=== PATIENT | female | born 1950 | race Asian ===

== ENCOUNTER 2018-06-09 07:02 | Emergency (ER) | payer BC ==
--- NOTE | 2018-06-09 07:18 | UC ---
Back Pain HPI - HPI Summary HPI Summary: This is a 67 year old female with a chief complaint of upper back pain beginning 3 days ago. PAIN INTENSITY NOW: 01/12 COURSE: getting worse QUALITY: tight, ache LOCATION: upper back, between shoulder blades MADE WORSE BY: palpation, back flexion RELIEVED BY: lying down, shower Note: VSS; 130/74 Nurses note: pt started three days ago with upper back discomfort, denies injury. denies cp. no sob. - History of Current Complaint Stated Complaint: UPPER BACK PAIN Time Seen by Provider: 06/09/18 07:15 - Allergies/Home Medications Allergies/Adverse Reactions: Allergies Allergy/AdvReac Type Severity Reaction Status Date / Time No Known Allergies Allergy Verified 01/30/14 11:53 PMH/Surg Hx/FS Hx/Imm Hx - Additional Past Medical History Additional PMH: VISIT HISTORY: non-contributory to present complaint MEDICATIONS: metformin, lisinopril CHRONIC CONDITIONS: DM; Hypertension Family history significant for: -cancer; denies CVD SMOKING: neg ALCOHOL: neg EMPLOYMENT: homemaker Previously Healthy: Yes - Surgical History Surgical History: Yes Surgery Procedure, Year, and Place: 15 years ago - appendix. 10 years ago - Lumpectomy - neck - benign. sinus surgery - Social History Alcohol Use: None Substance Use Type: None Smoking Status (MU): Never Smoked Tobacco Have You Smoked in the Last Year: No Review of Systems All Other Systems Reviewed And Are Negative: Yes Constitutional: Positive: Negative Skin: Positive: Negative Eyes: Positive: Negative ENT: Positive: Negative Respiratory: Positive: Negative Cardiovascular: Positive: Negative Gastrointestinal: Positive: Negative Genitourinary: Positive: Negative Motor: Positive: Negative Neurovascular: Positive: Negative Musculoskeletal: Positive: Myalgia - BETWEEN SHOULDER BLADES TO PALPATION AND FLEXION Neurological: Positive: Negative Psychological: Positive: Negative Physical Exam - Summary Physical Exam Summary: Appearance: The patient is well-appearing, is in no pain or distress, and is well-nourished. Eyes: Conjunctiva are clear. Pupils are equal and reactive to light and accommodation. Extra ocular muscle movement is intact. ENT: The hearing is grossly normal, the pharynx is normal, and the TMs are normal. There is no muffled or hoarse voice. No stridor. Neck: The neck is supple and there is no lymphadenopathy. Respiratory: The chest is nontender to palpation and without crepitus. The lungs are clear, there are normal breath sounds, and there is no respiratory distress. No wheezes, rales or rhonchi. Cardiovascular: Heart sounds reveal a regular rate and rhythm. There are no clicks, rubs or murmurs. There are no carotid bruits or thrills. Circulation is grossly intact. Abdomen: The abdomen is soft and nontender. There is no organomegaly. Bowel sounds are present and within normal limits. No point tenderness at McBurneys point. Musculoskeletal: Strength is intact. The patient moves all extremities. Neurological: The patient is alert. Motor and sensory are examination grossly intact. Speech is normal. Psychological: The patient displays age appropriate behavior Skin: Negative for rashes. right: 134/62 left: 130/74 Triage Information Reviewed: Yes Back Pain Course/Dx - Course Course Of Treatment: 67 YEAR old with 3 day hx of upper back discomfort. She states that she does a lot of upper extremity exercises. Denies chest pain. BP equal and pulses equal, radial. Pain with palpation between shoulder blades. Patient is currently in physical therapy for her knee. She will begin for this muscle strain condition. - Differential Dx/Diagnosis Differential Diagnosis/HQI/PQRI: Aneurysm, Fracture, Herniated Disc, Strain Provider Diagnosis: Strain, back Discharge - Sign-Out/Discharge Documenting (check all that apply): Patient Departure All imaging exams completed and their final reports reviewed: No Studies - Discharge Plan Condition: Stable Disposition: HOME Prescriptions: Cyclobenzaprine TAB* [Flexeril TAB*] 10 mg PO BID #10 tab MDD 2 Patient Education Materials: Acute Low Back Pain (ED) Referrals: Mariya Villavicencio MD [Primary Care Provider] - Additional Instructions: WE DISCUSSED: PLEASE SEEK CARE AT THE EMERGENCY DEPARTMENT IF SYMPTOMS WORSEN OR IF NEW SYMPTOMS DEVELOP. FOLLOW UP WITH YOUR PRIMARY CARE PHYSICIAN IF CONDITION CONTINUES BEYOND 5 DAYS WITHOUT IMPROVEMENT. YOUR DIAGNOSIS IS: TRAPEZIUS MUSCLE STRAIN YOUR PRESCRIPTION RECOMMENDATION IS: flexeril muscle relaxant; acetaminophen; you can try ibuprofen unless you have heartburn OTHER INSTRUCTIONS: Hypertension Discharge Instructions: Your blood pressure reading today was slightly high, indicating HYPERTENSION. Follow-up with your primary care provider within 4 weeks for blood pressure check and appropriate recommendations and treatment, as needed. FOR PAIN AND/OR SLEEP: For pain: Ibuprofen (Motrin and other brand names) 400-600mg PLUS acetaminophen (Tylenol and other brand names) 500mg - 1000mg every 8 hours. Maximum is 3 doses a day. If this dosage is required for more than 5 days, you should re-check with your doctor. The combination of these two over-the- counter medications can be more effective than each one taken alone. Please check with the pharmacist if you have questions about your allergies to these medications. To help you sleep: If you feel as if you want to calm down and get sleepy, over the counter diphenhydramine (Benadryl and other brand names), 25 mg up to every 8 hours may be useful. Please check with the pharmacist if you have questions about your allergies to these medications. PHYSICAL THERAPY REFERRAL: This is your referral to a physical therapist. The physical therapy (PT) will help you recover. After an injury, PT can reduce swelling and pain. In recovery, PT is used to restore mobility and strength. Your specific treatment goals are: +++Reduction of Swelling (EGS, US, ice as needed) +++Pain Reduction (EGS, US, ice as needed) +++Gnosticism of Mobility -Your diagnosis is: strain of trapezius -Duration of therapy: two weeks or until resolution of condition. -Your physician re-evaluation needs to be arranged by you. - Billing Disposition and Condition Condition: STABLE Disposition: Home
[2018-06-09 07:19] VITALS: BP 130/74
== END 2018-06-09 07:53 | disposition home or self-care (01) ==
LOC: UCEAST 07:02
DX: S29.012A Strain of muscle and tendon of back wall of thorax, initial encounter (principal); X58.XXXA Exposure to other specified factors, initial encounter; Y92.9 Unspecified place or not applicable
CPT/HCPCS: 99202; G0463

== ENCOUNTER 2019-03-15 18:40 | Emergency (ER) | payer BC ==
--- OUTSIDE RECORDS SUMMARY | 2019-03-15 18:44 | XMS REPORT | Summary of Care ---
:1950 Author Organization [facility] Address [address] [address] Care Team Providers Name Role Phone Mariya Villavicencio MD Primary Care Provider Reason for Visit Reason Comments Thoracic Back Pain Encounter Details Date Type Department Care Team Description 02/15/2019 Office Visit [facility] - La Henderson, PT Acute thoracic back [facility] [address] [place] [address] Dr pain, unspecified Therapy [address] back pain laterality [address] [place] [address] (Primary Dx) [address] [phone] [place] [address] [phone] Allergies Active Allergy Reactions Severity Noted Date Comments Tramadol GI Reaction 10/04/2014 Upset stomach after 4 doses documented as of this encounter (statuses as of 02/15/2019) Medications Medication Sig Dispensed Refills Start Date End Date Status acetaminophen (TYLENOL) Take 1 Tab by 60 Tab 0 02/14/2016 Active 500 MG Oral mouth EVERY SIX TabIndications: Mid-back HOURS NEEDED pain, acute for Pain. cyclobenzaprine Take 1 Tab by 21 Tab 0 02/14/2016 Active (FLEXERIL) 5 MG Oral mouth THREE TabIndications: Mid-back TIMES DAILY pain, acute NEEDED for muscle spasm. Sedating, be careful to avoid falls metFORMIN HCL 500 MG Take 2 Tabs by 180 Tab 3 08/26/2018 Active Oral TABLET SR 24 mouth DAILY. HRIndications: Diabetes mellitus without complication (HCC) naproxen (NAPROSYN) 500 Take 500 mg by 0 Active MG Oral Tab mouth TWICE DAILY. simvastatin (ZOCOR) 40 TAKE ONE TABLET 90 Tab 3 02/07/2019 Active MG Oral TabIndications: BY MOUTH AT Lipid disorder BEDTIME lisinopril (PRINIVIL, TAKE ONE TABLET 90 Tab 3 02/07/2019 Active ZESTRIL) 20 MG Oral BY MOUTH EVERY TabIndications: Lipid DAY disorder documented as of this encounter (statuses as of 02/15/2019) Active Problems Problem Noted Date Right upper quadrant abdominal pain 10/04/2018 Acute thoracic back pain 06/10/2018 Sciatica, left side 04/01/2016 Acute pain of left knee 04/01/2016 Knee pain 12/27/2012 BMI 34.0-34.9,adult 02/05/2012 Overview: This patient's BMI has been calculated and is above average, and BMI management plan is completed. General patient education discussion including: obesity-related excess mortality DM (diabetes mellitus) 07/18/2011 Lipid disorder 11/18/2007 Scrofula 09/13/2007 Overview: STATUS POST TREATMENT BY THE HEALTH DEPARTMENT Helicobacter Pylori (H. 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 Osteopenia 09/13/2007 Essential hypertension 09/13/2007 documented as of this encounter (statuses as of 02/15/2019) Resolved Problems Problem Noted Date Resolved Date Hyperlipidemia 09/13/2007 09/27/2008 documented as of this encounter (statuses as of 02/15/2019) Immunizations Name Administration Dates Next Due Depo Medrol (80mg) 01/09/2015 IN-CLINIC MED ADMINISTRATION 01/10/2015 Influenza Vaccine Whole 06/15/2007 Synvisc (16 mg) 06/03/2016, 05/27/2016, 05/20/2016, 05/06/2016, 04/29/2016 TDAP Vaccine 01/24/2014 documented as of this encounter Social History Tobacco Use Types Packs/Day Years Used Date Never Smoker Smokeless Tobacco: Never Used Alcohol Use Drinks/Week oz/Week Comments No 0 Standard drinks or equivalent 0.0 Sex Assigned at Date Recorded Not on file Job Start Date Occupation Industry Not on file Not on file Not on file Travel History Travel Start Travel End No recent travel history available. documented as of this encounter Last Filed Vital Signs Not on filedocumented in this encounter Progress Notes La Henderson, PT - 02/15/2019 8:00 AM EDT [facility] Treatment Note [facility]patient [facility] PH[facility]ICAL [facility]ERAPY [address] [place] [phone] Treatment Number: 8 Referring Physician: Mariya Villavicencio Primary Diagnosis: ICD-9-CM ICD-10-CM 1. Acute thoracic back pain, unspecified back pain laterality 724.1 M54.6 Time In: 0800 Time Out: 0830 Total Session Minutes: 30 Pain at Start of Care: 08/15 Pain at End of Care: 07/15 Subjective Comments: Still gets pain if she does too much cooking, cleaning or sits to long. Othertimes the mid back just feels tight Interventions: Therapeutic Exercises (09883) Number of Exercises?: 4 Total Minutes (all Therapeutic Exercise): 10 Exercise #2 Exercise Name: Prone I/T Reason for Exercise: Strengthening Location/Body Area: Shoulder;Thoracic Spine Sets/Reps: 10 Exercise #4 Exercise Name: upper traps stretch Reason for Exercise: Flexibility Location/Body Area: Cervical Spine Sets/Reps: 3x30 seconds Manual Therapy (96925) Soft Tissue Mobilization: Manual Tissue Mobilization Soft Tissue Mobilization Details: DTM to thoracic region Joint Mobilization: P-A at thoracic spine Joint Mobilization Details: grade 3-4 Taping: kinesiotape Taping Details: Y strip to facilitate rhomboids; lower traps Total Minutes (All Manual Therapy): 20 Assessment: Patient demonstrates decreased scap stabilizer and postural strength. Requires cueing for posture but is independent with HEP. Patient also reports ongoing difficulty in cooking, cleaning, bending, prolonged sitting. Skilled Physical Therapy services are required to address ongoing functional and objective limitations/impairments including impaired posture, decreased strength, thoracichypomobility. Plan for Next Visit: Continue per POC. Add more strengthening to HEP. Total UNTIMED Code Treatment Minutes: Total TIMED Code Treatment Minutes: 30 Total Treatment Minutes: 30 Author: La Henderson, PT 02/15/2019 08:30 documented in this encounter Plan of Treatment Date Type Specialty Care Team Description 03/02/2019 Office Visit Physical Therapy La Henderson, PT [address] [place] [address] [place] [address] [phone] 03/09/2019 Office Visit Physical Therapy La Henderson, PT [address] [place] [address] [phone] Health Maintenance Due Date Last Done Comments Diabetic Eye Exam 1950 ZOSTER IMMUNIZATION SERIES 2002 (1 of 2) FALL RISK ASSESSMENT 2017 PNEUMOCOCCAL 65+YRS (1 of 2 2017 - PCV13) INFLUENZA VACCINE (#1) 2019 06/15/2007 HEMOGLOBIN A1C 03/30/2019 09/27/2018, 06/18/2018, 01/29/2018, Additional history exists FOOT EXAM 06/17/2019 06/17/2018, 06/17/2018, 06/17/2018, Additional history exists DEPRESSION SCREENING 10/05/2019 10/04/2018 LIPID DISORDER SCREENING 02/08/2020 02/07/2019, 09/27/2018, 06/18/2018, Additional history exists OSTEOPOROSIS SCREENING 02/15/2024 02/14/2014 HPV IMMUNIZATION SERIES Aged Out No longer eligible based on patient's age to complete this topic MENINGOCOCCAL VACCINE IMM Aged Out No longer eligible based on patient's age to complete this topic documented as of this encounter Goals Goal Patient Goal Associated Recent Patient-Stated? Author Type Problems Progress Blood Pressure Blood Pressure 135/73 No Saud, < 140/90 (01/12/2019 MD Mariya 4:10 PM EDT) Note: This is an individualized treatment (blood pressure) goal for Eryn Abraham: Displayed above (on the left) is your goal for blood pressure control. Your most recent blood pressure is also shown above, on the right. You should try to achieve blood pressures that are lower than your goal listed above (on the left). Glycohemoglobin A1c < 7.0 Diabetes 6.9 (09/27/2018 8:04 AM No Mariya Villavicencio MD EDT) Note: This is an individualized treatment (diabetes control, HgbA1C) goal for Eryn Abraham: Displayed above is your progress towards your HgbA1C goal. Your goal is shown above (on the left); your most recent HgbA1C is shown on the right. Note that lower numbers are better. Weight loss vs. 18 mo max Lifestyle 0 (01/12/2019 4:10 PM EDT) Mariya Gutierrez MD (lbs) >= 10 Note: This is an individualized lifestyle goal for Eryn Abraham: Your body mass index (BMI) is more than 30. You should lose weight. A reasonable starting goal is to lose 10 pounds. Displayed above is how many pounds you have lost thus far towards your 10 pound weight loss goal. Keep immunizations current Lifestyle No Mariya Villavicencio MD Note: This is an individualized lifestyle goal for Eryn Abraham: Please be sure to keep up-to-date on recommended immunizations. For example, this would include a yearly influenza vaccine. Immunization status can be seen by looking at the Health Maintenance sections of your e[facility], Plan of Care, and any After Visit Summaries. Take all prescribed medications as directed Self-management No Mariya Villavicencio MD Note: This is an individualized self-management goal for Eryn Abraham: Please take all prescribed medications as directed. 1. Do not skip doses. If you cannot afford your medications, talk with your doctor. 2. Use a pill reminder system such as a pill box if needed. Your pharmacist can help you with this. 3. Contact your Pharmacy 5 days before your medication runs out. If you cannot take your medications for any reasons, talk with your doctor. 4. Please bring all of your medication bottles and inhalers (or a list of all your medications/inhalers) with you to every visit. Potential barriers to meeting all of your care plan goals will continue to be addressed on an ongoing basis. documented as of this encounter Results Not on filedocumented in this encounter Visit Diagnoses Diagnosis Acute thoracic back pain, unspecified back pain laterality - Primary documented in this encounter Insurance Payer Benefit Plan / Subscriber ID Effective Dates Phone Address Type Group JOSEF CHRISTIANSEN xxxxxxxxxxxx 2014-Present [employer] Name Account Type Relation to Date of Phone Billing Patient Address Eryn Abraham Personal/Family 1950 [phone] [phone] [place], [place] (Work) [id number] documented as of this encounter
--- OUTSIDE RECORDS SUMMARY | 2019-03-15 18:44 | XMS REPORT | Summary of Care ---
:1950 Author Organization [facility] Address [address] [address] Care Team Providers Name Role Phone Mariya Villavicencio MD Primary Care Provider Reason for Visit Reason Comments Thoracic Back Pain Encounter Details Date Type Department Care Team Description 03/09/2019 Office Visit [facility] - La Henderson, PT Acute thoracic back [facility] [address] [place] [address] Dr pain, unspecified Therapy [address] back pain laterality [address] [place] [address] (Primary Dx) [address] [phone] [place] [address] [phone] Allergies Active Allergy Reactions Severity Noted Date Comments Tramadol GI Reaction 10/04/2014 Upset stomach after 4 doses documented as of this encounter (statuses as of 03/09/2019) Medications Medication Sig Dispensed Refills Start Date [...] as of this encounter (statuses as of 03/09/2019) Active Problems Problem Noted Date Right upper [...] as of this encounter (statuses as of 03/09/2019) Resolved Problems Problem Noted Date Resolved Date Hyperlipidemia 09/13/2007 09/27/2008 documented as of this encounter (statuses as of 03/09/2019) Immunizations Name Administration Dates Next Due Depo [...] encounter Progress Notes La Henderson, PT - 03/09/2019 8:30 AM EDT [facility] Progress Note [facility]patient Physical [facility] [address] [place] [phone] Patient: Eryn Abraham : 1950 Date of Service: 03/09/2019 Referring Physician: Mariya Villavicencio This progress report is for dates 01/18/19 to 03/09/2019. Total Visits Attended: 10 Time In: 0830 Time Out: 09 ICD-9-CM ICD-10-CM 1. Acute thoracic back pain, unspecified back pain laterality 724.1 M54.6 Subjective: Eryn Abraham is a 68-y.o.-year-old female with mid back pain. Pain is much better and she can tolerate standing and sitting longer but still has increase of pain by end of the day. Is trying to go back to working 1-2x/week and would like to join a gym. Prior Functional Status: Prior Function Comment: independent Current Functional Status: Current Function Comment: modifies ADL's d/t constant pain FOTO Data FOTO Intake Completed: Yes Objective: Posture: Rounded shoulders bilaterally with excessive thoracic kyphosis Palpation: Pain with palpation to bilateral middle trap and rhomboids. P-A at T4-T7 increases pain with hypomobility noted Full Cervical ROM with contralateral pain during lateral flexion bilaterally Thoracic rotation limited 50% bilaterally but denies pain Full Shoulder ROM without reproduction of pain Rhomboid, Middle Trap, Lower Trap Strength grossly 3+/5 on right, 4/5 on left Outcome Tools Used: FOTO Interventions: PT Eval Low Complexity (45119);Therapeutic Exercise (Timed) (37288);Ultrasound ( Timed) (77788);Manual Therapy (Timed) (13255);E-Stim (Commercial) (73636);Moist Hot Pack (50425);Cold Pack (77531) The above planned interventions may be used in Physical Therapy treatment of her condition, but will not be limited to these interventions as warranted by the Physical Therapist. Was Physical Therapy treatment performed at this visit? Yes: Interventions: FOTO Data FOTO Intake Completed: Yes Therapeutic Exercises (55774) Number of Exercises?: 6 Total Minutes (all Therapeutic Exercise): 15 Exercise #2 Exercise Name: Prone I/T Reason for Exercise: Strengthening Location/Body Area: Shoulder;Thoracic Spine Sets/Reps: 10 Exercise #4 Exercise Name: scap retraction against door frame Reason for Exercise: Joint Mobility Location/Body Area: Thoracic Spine Sets/Reps: 10 Exercise #5 Exercise Name: prone ER Reason for Exercise: Strengthening Location/Body Area: Shoulder;Thoracic Spine Sets/Reps: 10 Manual Therapy (14390) Soft Tissue Mobilization: Manual Tissue Mobilization Soft Tissue Mobilization Details: DTM to thoracic region Joint Mobilization: P-A at thoracic spine Joint Mobilization Details: grade 4,5 Total Minutes (All Manual Therapy): 15 Goals/Goal Status: Short term goals to be achieved within 3 weeks: 1. Patient will demonstrate independence with HEP-met 2. Patient will have full cervical ROM without reproduction of pain- met FDC goals to be achieved within 6-8 weeks: 1. Patient will have rhomboid strength of 4-/5 to improve posture- partially met (left side strengthimproved) 2. Patient will tolerate sitting more than 30 minutes before increase in pain- not met Assessment Status: Patient presents with thoracic pain that is worse with prolonged positions and bending and lifting. Improved mobility and left side scapular stabilizer strength noted but impaired posture and scapulothoracic weakness still increasing thoracic compression. Would benefit from continued therapy to improve thoracic hypomobiltiy, increase strengthening and advance HEP. Plan for Next Visit: Advance to 1x/wk for 4 weeks. Total Timed Codes (Minutes): 30 Total Treatment Time (Minutes): Author: La Henderson, BRADY 03/09/2019 08:59 documented in this encounter Plan of Treatment Date Type Specialty Care Team Description 03/17/2019 Office Visit Physical Therapy La Henderson, PT [address] [place], [place] [id number] 03/23/2019 Office Visit Physical Therapy La Henderson, PT [address] [place] [address] [phone] 03/30/2019 Office Visit Physical Therapy La Henderson, PT [address] [place] [address] [phone] 04/06/2019 Office Visit Physical Therapy La Henderson, PT [address] [place] [address] [phone] Health Maintenance Due Date Last Done Comments [...] max Lifestyle 0 (01/12/2019 4:10 PM EDT) No Mariya Villavicencio MD (lbs) >= 10 Note: This is [...] Address Type Group JOSEF CH[employer]IANSEN xxxxxxxxxxxx 2014-Present [employer] Guarantor Name Account Type Relation to Date of Phone Billing Patient Address Eryn Abraham Personal/Family 1950 [phone] [phone] [place], [place] (Work) [address] documented as of this encounter
--- OUTSIDE RECORDS SUMMARY | 2019-03-15 18:44 | XMS REPORT | Summary of Care ---
:1950 Author Organization [facility] Address [address] [place] [address] Care Team Providers Name Role Phone Mariya Villavicencio MD Primary Care Provider Reason for Visit Reason Comments Thoracic Back Pain Encounter Details Date Type Department Care Team Description 03/02/2019 Office Visit [facility] - La Henderson, PT Acute thoracic back [facility] [address] [place] [address] Dr pain, unspecified Therapy [address] back pain laterality [address] [place] [address] (Primary Dx) [phone] [place] [address] [phone] Allergies Active Allergy Reactions Severity Noted Date Comments Tramadol GI Reaction 10/04/2014 Upset stomach after 4 doses documented as of this encounter (statuses as of 03/02/2019) Medications Medication Sig Dispensed Refills Start Date [...] as of this encounter (statuses as of 03/02/2019) Active Problems Problem Noted Date Right upper [...] as of this encounter (statuses as of 03/02/2019) Resolved Problems Problem Noted Date Resolved Date Hyperlipidemia 09/13/2007 09/27/2008 documented as of this encounter (statuses as of 03/02/2019) Immunizations Name Administration Dates Next Due Depo [...] encounter Progress Notes La Henderson, PT - 03/02/2019 8:30 AM EDT [facility] Treatment Note Outpatient Physical Therapy [facility] [address] [place] [phone] Treatment Number: 9 Referring Physician: Mariya Villavicencio Primary Diagnosis: ICD-9-CM ICD-10-CM 1. Acute thoracic back pain, unspecified back pain laterality 724.1 M54.6 Time In: 0830 Time Out: 0900 Total Session Minutes: 30 Pain at Start of Care: 10/13 Pain at End of Care: 08/15 Subjective Comments: Things were feeling better but feels like when she went two weeks without PT the pain increased. Feels tight and painful from mid back to base of neck. Interventions: Therapeutic Exercises (56100) Number of Exercises?: 5 Total Minutes (all Therapeutic Exercise): 15 Exercise #1 Exercise Name: Foam roller Reason for Exercise: Flexibility Location/Body Area: Thoracic Spine Sets/Reps: 5 minutes Exercise #2 Exercise Name: Prone I/T Reason for Exercise: Strengthening Location/Body Area: Shoulder;Thoracic Spine Sets/Reps: 10 Exercise #3 Exercise Name: Open book stretch Reason for Exercise: Flexibility Location/Body Area: Thoracic Spine Sets/Reps: 8 Exercise #4 Exercise Name: scap retraction against door frame Reason for Exercise: Joint Mobility Location/Body Area: Thoracic Spine Sets/Reps: 10 Manual Therapy (11261) Soft Tissue Mobilization: Manual Tissue Mobilization Soft Tissue Mobilization Details: DTM to thoracic region Joint Mobilization: P-A at thoracic spine Joint Mobilization Details: grade 3-4 Taping: kinesiotape Taping Details: Y strip to facilitate rhomboids; lower traps Total Minutes (All Manual Therapy): 15 Assessment: Patient demonstrates decreased scapulothoracic strength and thoracic hypomobility. Patient also reports ongoing difficulty in cooking, cleaning, prolonged positions. Skilled Physical Therapy services are required to address ongoing functional and objective limitations/impairments. Plan for Next Visit: Continue per POC. Review and print HEP. Total UNTIMED Code Treatment Minutes: Total TIMED Code Treatment Minutes: 30 Total Treatment Minutes: 30 Author: La Henderson, PT 03/02/2019 09:57 documented in this encounter Plan of Treatment Date Type Specialty Care Team Description 03/09/2019 Office Visit Physical Therapy La Henderson, PT [address] [place] [address] [phone] Health Maintenance Due Date Last Done Comments [...] Progress Blood Pressure Blood Pressure 135/73 No [place], < 140/90 (01/12/2019 MD Mariya 4:10 PM [...] Effective Dates Phone Address Type Group [employer] xxxxxxxxxxxx 2014-Present [employer] Name Account Type Relation to Date of Phone Billing Patient Address Eryn Abraham Personal/Family 1950 [address] [phone] [place], [place] ([place]) [id number] documented as of this encounter
[2019-03-15 19:06] VITALS: BP 172/88
--- NOTE | 2019-03-15 21:21 | UC ---
Truncal Trauma HPI - HPI Summary HPI Summary: 2 DAYS AGO PATIENT SLIPPED AND STRUCK HER LEFT RIBS ON THE SIDE OF THE BATHTUB. STATES YESTERDAY PAIN WAS TOLERABLE BUT TODAY IT FEELS WORSE. TOOK 2 "PAIN KILLER TABLETS " THAT HER FRIEND SENDS HER FROM [place]. SHE STATES IT IS NOT A NARCOTIC AND IS SIMILAR TO TYLENOL. NO IMPROVEMENT WITH THIS MEDICATION. DENIES SHORTNESS OF BREATH, NAUSEA, CHEST PAIN. NO FEVER. - History Of Current Complaint Chief Complaint: UCLowerExtremity Stated Complaint: HIP INJURY Time Seen by Provider: 03/15/19 19:10 Hx Obtained From: Patient, Family/Oracle Consultant - Onset/Duration: Sudden Onset, Lasting Days, Still Present Onset Of Pain: Immediate Severity Initially: Moderate Severity Currently: Moderate Pain Intensity: 10 Pain Scale Used: 0-10 Numeric Mechanism Of Injury: Blunt Trauma Aggravating Factor(s): Movement, Deep Breathing, Cough Alleviating factor(s): Rest Associated Signs And Symptoms: Positive: Negative - Allergies/Home Medications Allergies/Adverse Reactions: Allergies Allergy/AdvReac Type Severity Reaction Status Date / Time No Known Allergies Allergy Verified 03/15/19 19:06 PMH/Surg Hx/FS Hx/Imm Hx Endocrine History: Diabetes, Dyslipidemia Cardiovascular History: Hypertension - Surgical History Surgical History: Yes Surgery Procedure, Year, and Place: [facility] node surgery neck,. hip surgery - Family History Known Family History: Positive: Hypertension - Social History Alcohol Use: None Substance Use Type: None Smoking Status (MU): Never Smoked Tobacco Have You Smoked in the Last Year: No Review of Systems All Other Systems Reviewed And Are Negative: Yes Constitutional: Positive: Negative Skin: Positive: Negative Respiratory: Positive: Negative Cardiovascular: Positive: Negative Gastrointestinal: Positive: Negative Musculoskeletal: Positive: Arthralgia, Decreased ROM, Myalgia Physical Exam Triage Information Reviewed: Yes Appearance: Well-Appearing, Well-Nourished, Pain Distress Vital Signs: Initial Vital Signs Temp 97.2 F 03/15/19 19:01 Pulse 74 03/15/19 19:01 Resp 18 03/15/19 19:01 BP 172/88 03/15/19 19:01 Pulse Ox 99 03/15/19 19:01 Vital Signs Reviewed: Yes Eyes: Positive: Conjunctiva Clear ENT: Positive: Hearing grossly normal Neck: Positive: Supple Respiratory Exam: Normal Cardiovascular Exam: Normal Abdomen Description: Positive: Soft Musculoskeletal: Positive: No Edema, ROM Limited @ - TRUNK, Other: - TTP LEFT LATERAL RIB CAGE Neurological: Positive: Alert Psychological: Positive: Normal Response To Family, Age Appropriate Behavior Skin: Negative: Rashes Diagnostics - Radiology LEFT RIB XRAYS Radiology Interpretation Completed By: Radiologist Summary of Radiographic Findings: No acute findings. Truncal Trauma Course/Dx - Differential Dx/Diagnosis Provider Diagnosis: Contusion of rib on left side Discharge ED - Sign-Out/Discharge Documenting (check all that apply): Patient Departure All imaging exams completed and their final reports reviewed: Yes - Discharge Plan Condition: Stable Disposition: HOME Prescriptions: Cyclobenzaprine TAB* [Flexeril TAB*] 10 mg PO BID PRN #30 tab PRN Reason: Pain HYDROcodone/ACETAMIN 5-325 MG* [[place] 5-325 TAB*] 1 tab PO Q6H PRN #15 tab MDD 4 PRN Reason: Pain Ibuprofen TAB* [Motrin TAB* 600 MG] 1 tab PO Q6H PRN #30 tab PRN Reason: Pain Patient Education Materials: Rib Contusion (ED) Referrals: Mariya Villavicencio MD [Primary Care Provider] - 2 Weeks Additional Instructions: RIB X-RAYS UNREMARKABLE ON MY INITIAL INTERPRETATION. WE WILL CALL YOU IF THE RADIOLOGY READ DIFFERS. TAKE IBUPROFEN NEEDED FOR PAIN. HYDROCODONE FOR BREAKTHROUGH. MUSCLE RELAXER BEFORE BED MAY ALSO HELP. BE AWARE THAT BOTH HYDROCODONE AND A MUSCLE RELAXER CAN BE SEDATING SO USE WITH CAUTION. DO NOT USE SIMULTANEOUSLY. GO TO THE ER WITHOUT FAIL IF YOU DEVELOP INTOLERABLE PAIN, FEVER, BRUISING THAT SPREADS, CHEST PAIN, SHORTNESS OF BREATH OR ANY OTHER CONCERNING SYMPTOMS. - Billing Disposition and Condition Condition: STABLE Disposition: Home
== END 2019-03-15 20:16 | disposition home or self-care (01) ==
LOC: UCEAST 18:40
DX: S20.212A Contusion of left front wall of thorax, initial encounter (principal); W01.198A Fall on same level from slipping, tripping and stumbling with subsequent striking against other object, initial encounter; Y92.012 Bathroom of single-family (private) house as the place of occurrence of the external cause; E78.5 Hyperlipidemia, unspecified; E11.9 Type 2 diabetes mellitus without complications; I10 Essential (primary) hypertension
CPT/HCPCS: 99212; G0463